=== PATIENT | male | born 1990 | race Caucasian/White ===

== ENCOUNTER 2019-05-15 07:57 | Emergency (ER) | payer BC ==
[~2019-05-15] VITALS: Ht 185.4 cm; Wt 62.6 kg
--- NOTE | 2019-05-15 08:13 | NUR ---
ED Nurse Note: pt not found in waiting area.
[2019-05-15 08:30] VITALS: BP 141/95
--- NOTE | 2019-05-15 08:30 | NUR ---
ED Nurse Note: Patient walked in to ED due to lower abdominal pain with n/v/d for 1 day. Pt rates pain at 3/10. Pt is A&O x4, V/S noted with no s/s of acute distress noted at this time. Pt is connected to the director of cardiac cath lab. Bed placed in the lowest position.
[2019-05-15] MEDS ORDERED: LOPERAMIDE2 M1 PO (09:08)
[2019-05-15] MEDS ORDERED: DICYCLOMINE HCL10 MG ORAL (09:08)
[2019-05-15] MEDS ORDERED: Lidocaine 2% Visc 15ml soln ORAL ONE (09:15)
[2019-05-15] MEDS ORDERED: Dicyclomine HCl 10mg/5ml oral soln ORAL ONE (09:15)
[2019-05-15 09:27] VITALS: BP 127/88
--- NOTE | 2019-05-15 09:30 | NUR ---
ER DISCHARGE NOTE: Patient is cleared to be discharged per ERMD, pt is aox4, on room air, with stable vital signs. pt was given dc and prescription instructions, pt was able to verbalize understanding, pt id band removed. pt is able to ambulate with steady gait. pt took all belongings.
[2019-05-15] MEDS ORDERED: CEPHALEXIN500 MG ORAL (14:31)
--- NOTE | 2019-05-16 21:11 | Emergency Room Report ---
History of Present Illness General Chief Complaint: Abdominal Pain Source: Patient Present Illness HPI Patient presented for abdominal cramping and watery diarrhea. Denies bad food exposure or recent travel. No bloody stools. No vomiting. Denies recent fever. No dizziness. Allergies: Coded Allergies: No Known Allergies (Unverified , 05/15/19) Patient History Past Medical History: see triage record Reviewed Nursing Documentation: PMH: Agreed; PSxH: Agreed Nursing Documentation-PMH Past Medical History: No Stated History Physical Exam Vital Signs Date Time Temp Pulse Resp B/P (MAP) Pulse Ox O2 Delivery O2 Flow Rate FiO2 05/15/19 08:25 98.8 116 18 141/95 (110) 96 Room Air Sp02 EP Interpretation: reviewed, normal General Appearance: normal inspection, well appearing, no apparent distress, alert, GCS 15 Head: atraumatic ENT: normal ENT inspection, hearing grossly normal, normal voice Neck: normal inspection, full range of motion, supple, no bony tend Respiratory: normal inspection, lungs clear, normal breath sounds, no respiratory distress, no retraction, no wheezing Cardiovascular #1: regular rate, rhythm, no edema Gastrointestinal: normal inspection, normal bowel sounds, non tender, soft, no guarding, no hernia Genitourinary: no CVA tenderness, scrotum normal Musculoskeletal: normal inspection, back normal, normal range of motion Neurologic: normal inspection, alert, oriented x3, responsive, white sugar boiler III-XII nml as tested, speech normal Psychiatric: normal inspection, judgement/insight normal, mood/affect normal Skin: no rash Medical Decision Making Diagnostic Impression: Primary Impression: Enteritis ER Course Patient presented for left side abdominal pain and diarrhea. Differential diagnoses included ischemic bowel, appendicitis, perforated viscus, abdominal aortic aneurysm, inferior myocardial infarction, viral gastroenteritis among others.Patient's exam and history is not suggestive of any surgical abdomen. There is no signs of peritonitis. Patient's pain improved with a GI cocktail. Patient appear stable for discharge. Able to tolerate oral fluids. Return if worse. Last Vital Signs Date Time Temp Pulse Resp B/P (MAP) Pulse Ox O2 Delivery O2 Flow Rate FiO2 05/15/19 09:27 98.8 98 18 129/88 98 Room Air Status: improved Disposition: HOME, SELF-CARE Condition: Stable Scripts Dicyclomine Hcl* (DICYCLOMINE HCL*) 10 Mg Capsule 10 MG ORAL QID, #20 CAP Prov: Deshawn Stringer MD 05/15/19 Loperamide Hcl (LOPERAMIDE) 2 Mg Tablet 2 MG PO EVERY 12 HOURS for diarrhea, #14 TAB Prov: Deshawn Stringer MD 05/15/19 Referrals: [facility],REFERRING (PCP) Departure Forms: Return to Work Return to Work in (Days): 3 Patient Instructions: Abdominal Pain, Adult Deshawn Stringer MD May 16, 2019 21:11
== END 2019-05-15 09:30 | disposition home or self-care (01) ==
LOC: EMR 08:33
DX: K52.9 Noninfective gastroenteritis and colitis, unspecified (principal)
CPT/HCPCS: 99283

== ENCOUNTER 2019-05-15 12:26 | Emergency (ER) | payer BC ==
[~2019-05-15] VITALS: Ht 185.4 cm; Wt 62.6 kg
[~2019-05-15 12:26] MED LIST: DICYCLOMINE HCL10 MG ORAL; LOPERAMIDE2 M1 PO
[2019-05-15 13:05] VITALS: BP 132/78
--- NOTE | 2019-05-15 13:05 | NUR ---
ED Nurse Note: RECEIVED REPORT FROM AVA QUINTANA, PT WAS SEEN HERE AT [facility] THIS MORNING FOR LLQ ABD PAIN AND WAS DX WITH ENTERITIS THEN PRESCRIBED WITH ANTIBIOTICS. BUT PT CAME BACK DUE TO A SMALL AMOUNT OF BLOOD ON HIS STOOL THAT STARTED AN HOUR AGO. AAO X4 AND AMBULATORY. FRIEND AT THE BED SIDE.
--- NOTE | 2019-05-15 13:20 | NUR ---
ED Nurse Note: COLLECTED BLOOD/URINE THEN SENT.
[2019-05-15 13:48] LABS: ANION GAP 12 mmol/L (5-15); BLOOD UREA NITROGEN 10 mg/dL (7-18); CALCIUM 9.5 MG/DL (8.5-10.1); CARBON DIOXIDE 26 MMOL/L (21-32); CHLORIDE 104 MMOL/L (98-107); CREATININE 0.9 MG/DL (0.55-1.30); POTASSIUM 3.8 MMOL/L (3.5-5.1); SODIUM 142 MMOL/L (136-145)
[2019-05-15 13:50] LABS: BASOPHILS % (AUTO) 1.7 % (0.0-2.0); EOSINOPHILS % (AUTO) 0.1 % (0.0-3.0); HEMATOCRIT 50.7 % (42.0-52.0); HEMOGLOBIN 17.2 G/DL (14.2-18.0); LYMPHOCYTES % (AUTO) 17.8 % (20.0-45.0); MEAN CORPUSCULAR VOLUME 90 FL (80-99); MONOCYTES % (AUTO) 12.2 % (1.0-10.0); NEUTROPHILS % (AUTO) 68.1 % (45.0-75.0); PLATELET COUNT 204 K/UL (150-450); RED BLOOD COUNT 5.65 M/UL (4.70-6.10); RED CELL DISTRIBUTION WIDTH 11.1 % (11.6-14.8); WHITE BLOOD COUNT 7.1 K/UL (4.8-10.8)
[2019-05-15 13:52] LABS: BILIRUBIN, URINE NEGATIVE (NEGATIVE); GLUCOSE, URINE (UA) NEGATIVE (NEGATIVE); KETONES,URINE NEGATIVE (NEGATIVE); LEUKOCYTE ESTERASE ,URINE NEGATIVE (NEGATIVE); NITRITE,URINE NEGATIVE (NEGATIVE); PH,URINE 7 (4.5-8.0); PROTEIN,URINE 1+ (NEGATIVE); UROBILINOGEN,URINE NORMAL MG/DL (0.0-1.0)
[2019-05-15 13:53] LABS: ALANINE AMINOTRANSFERASE 21 U/L (12-78); ALBUMIN/GLOBULIN RATIO 1.1 (1.0-2.7); ALKALINE PHOSPHATASE 77 U/L (46-116); ASPARTATE AMINO TRANSFERASE 10 U/L (15-37); BILIRUBIN,TOTAL 0.5 MG/DL (0.2-1.0)
[2019-05-15 13:56] LABS: APPEARANCE,URINE CLEAR; COLOR,URINE YELLOW
[2019-05-15] MEDS ORDERED: CEPHALEXIN500 MG ORAL (14:31)
[2019-05-15 14:42] VITALS: BP 138/82
--- NOTE | 2019-05-15 14:42 | NUR ---
ED Nurse Note: Pt cleared by health care Provider for discharge. Patient accompanied by a significant other. DC instructions/prescription was given and explained to pt and verbalized understanding of teachings. All medical deviecs such as ID band removed. Pt is AAO x4, ambulatory and left with all personal belongings.
--- NOTE | 2019-05-16 21:20 | Emergency Room Report ---
History of Present Illness General Chief Complaint: Abdominal Pain Source: Patient Present Illness HPI Patient is a 28-year-old male who previously had been seen by me for abdominal pain and diarrhea. Patient had been having left lower abdominal pain. This had not changed and actually had been improved since last visit. He denies any recurrence of pain. He states he had another bowel movement which had some blood. He denies having any fever. He denies feeling dizzy or lightheaded. He noticed a small amount of blood primarily on tissue. He denies any recurrence of pain since the past visit which occurred several hours prior to this visit. Denies any hematemesis. Allergies: Coded Allergies: No Known Allergies (Unverified , 05/15/19) Patient History Past Medical History: see triage record Reviewed Nursing Documentation: PMH: Agreed; PSxH: Agreed Nursing Documentation-PMH Past Medical History: No Stated History Review of Systems All Other Systems: negative except mentioned in HPI Physical Exam Vital Signs Date Time Temp Pulse Resp B/P (MAP) Pulse Ox O2 Delivery O2 Flow Rate FiO2 05/15/19 12:33 99.0 103 17 130/88 (102) 100 Room Air Sp02 EP Interpretation: reviewed, normal General Appearance: normal inspection, well appearing, no apparent distress, alert, GCS 15, non-toxic Head: atraumatic ENT: normal ENT inspection, hearing grossly normal, normal voice Neck: normal inspection, full range of motion, supple, no bony tend Respiratory: normal inspection, lungs clear, normal breath sounds, no respiratory distress, no retraction, no wheezing Cardiovascular #1: regular rate, rhythm, no edema Gastrointestinal: normal inspection, normal bowel sounds, non tender, soft, no guarding, no hernia Genitourinary: no CVA tenderness Musculoskeletal: normal inspection, back normal, normal range of motion Neurologic: normal inspection, alert, responsive, speech normal Psychiatric: normal inspection, judgement/insight normal, mood/affect normal Medical Decision Making Diagnostic Impression: Primary Impression: Enteritis ER Course Patient presented for abdominal pain. Differential diagnoses included ischemic bowel, appendicitis, perforated viscus, abdominal aortic aneurysm, inferior myocardial infarction, viral gastroenteritis among others.Because patient's complexity imaging studies, and laboratory testing ordered. Laboratory testing showed some bacteriuria. White blood count was normal. No thrombocytopenia normal coagulation studies. No significant electrolyte abnormalities were seen.Patient given prescription for Keflex due to bacteruria. Return if worse. Patient appears to be stable for close outpatient follow up. Labs Test 05/15/19 13:17 White Blood Count 7.1 K/UL (4.8-10.8) Red Blood Count 5.65 M/UL (4.70-6.10) Hemoglobin 17.2 G/DL (14.2-18.0) Hematocrit 50.7 % (42.0-52.0) Mean Corpuscular Volume 90 FL (80-99) Mean Corpuscular Hemoglobin 30.5 PG (27.0-31.0) Mean Corpuscular Hemoglobin Concent 33.9 G/DL (32.0-36.0) Red Cell Distribution Width 11.1 % (11.6-14.8) Platelet Count 204 K/UL (150-450) Mean Platelet Volume 6.5 FL (6.5-10.1) Neutrophils (%) (Auto) 68.1 % (45.0-75.0) Lymphocytes (%) (Auto) 17.8 % (20.0-45.0) Monocytes (%) (Auto) 12.2 % (1.0-10.0) Eosinophils (%) (Auto) 0.1 % (0.0-3.0) Basophils (%) (Auto) 1.7 % (0.0-2.0) Prothrombin Time 10.5 SEC (9.30-11.50) Prothromb Time International Ratio 1.0 (0.9-1.1) Activated Partial Thromboplast Time 29 SEC (23-33) Urine Color Yellow Urine Appearance Clear Urine pH 7 (4.5-8.0) Urine Specific [place] 1.010 (1.005-1.035) Urine Protein 1+ (NEGATIVE) Urine Glucose (UA) Negative (NEGATIVE) Urine Ketones Negative (NEGATIVE) Urine Blood Negative (NEGATIVE) Urine Nitrite Negative (NEGATIVE) Urine Bilirubin Negative (NEGATIVE) Urine Urobilinogen Normal MG/DL (0.0-1.0) Urine Leukocyte Esterase Negative (NEGATIVE) Urine RBC 2-4 /HPF (0 - 0) Urine WBC 2-4 /HPF (0 - 0) Urine Squamous Epithelial Cells Occasional /LPF Urine Bacteria Occasional /HPF (NONE) Sodium Level 142 MMOL/L (136-145) Potassium Level 3.8 MMOL/L (3.5-5.1) Chloride Level 104 MMOL/L (98-107) Carbon Dioxide Level 26 MMOL/L (21-32) Anion Gap 12 mmol/L (5-15) Blood Urea Nitrogen 10 mg/dL (7-18) Creatinine 0.9 MG/DL (0.55-1.30) Estimat Glomerular Filtration Rate > 60 mL/min (>60) Glucose Level 98 MG/DL (74-106) Calcium Level 9.5 MG/DL (8.5-10.1) Total Bilirubin 0.5 MG/DL (0.2-1.0) Aspartate Amino Transf (AST/SGOT) 10 U/L (15-37) Alanine Aminotransferase (ALT/SGPT) 21 U/L (12-78) Alkaline Phosphatase 77 U/L (46-116) Total Protein 7.8 G/DL (6.4-8.2) Albumin 4.0 G/DL (3.4-5.0) Globulin 3.8 g/dL Albumin/Globulin Ratio 1.1 (1.0-2.7) Lipase 75 U/L (73-393) Last Vital Signs Date Time Temp Pulse Resp B/P (MAP) Pulse Ox O2 Delivery O2 Flow Rate FiO2 05/15/19 14:42 98.8 95 18 138/82 100 Room Air Status: improved Disposition: HOME, SELF-CARE Condition: Stable Scripts Cephalexin* (KEFLEX*) 500 Mg Capsule 500 MG ORAL EVERY 6 HOURS, #20 CAP Prov: Deshawn Stringer MD 05/15/19 Referrals: [facility],REFERRING (PCP) Patient Instructions: Abdominal Pain, Adult Deshawn Stringer MD May 16, 2019 21:20
== END 2019-05-15 14:43 | disposition home or self-care (01) ==
LOC: EMR 14:14
DX: K52.9 Noninfective gastroenteritis and colitis, unspecified (principal); K92.1 Melena; R82.71 Bacteriuria
CPT/HCPCS: 36415; 80053; 81003; 83690; 85025; 85610; 85730; 96360; 99284